=== PATIENT | female | born 2005 | race Caucasian/White ===

== ENCOUNTER 2023-11-08 12:31 | Outpatient (CLI) | payer SELFPAY | END 2023-11-08 23:59 | disposition home or self-care (01) | LOC: RAD 12:31 | PROVIDERS: ATTEND Family Medicine | DX: O34.81 Maternal care for other abnormalities of pelvic organs, first trimester (principal); N83.292 Other ovarian cyst, left side; Z3A.01 Less than 8 weeks gestation of pregnancy | CPT/HCPCS: 76801 ==